=== PATIENT | female | born 1995 | race Caucasian/White ===

== ENCOUNTER 2016-11-05 06:35 | Emergency (ER) | payer SELFPAY ==
[2016-11-05] MEDS ORDERED: NO HOME MEDICATION XX (06:57)
[2016-11-05 07:11] LABS: URINE BILIRUBIN NEGATIVE (NEG); URINE BLOOD SMALL (NEG); URINE GLUCOSE (UA) NEGATIVE (NEG); URINE KETONE SMALL (NEG); URINE LEUKOCYTE ESTERASE POSITIVE (NEG); URINE NITRITE NEGATIVE (NEG); URINE PROTEIN MODERATE (NEG); URINE SPECIFIC GRAVITY 1.025 (1.003-1.030)
[2016-11-05 07:13] LABS: URINE APPEARANCE HAZY; URINE COLOR YELLOW
[2016-11-05 07:21] LABS: BASO % 0.1 % (0-2); EOS % 0.8 % (0-7); EOSINOPHIL ABSOLUTE COUNT 0.1 tho/cmm (0.0-0.7); HCT-HEMATOCRIT 41.7 % (34.0-49.0); HGB-HEMOGLOBIN 13.8 gm/dl (12.0-15.5); IMMATURE GRANULOCYTES ABSOLUTE 0.04 tho/cmm (0-0.03); IMMATURE GRANULOCYTES PERCENT 0.3 % (0-0.3); LYMPH % 8.7 % (20-45); LYMPH ABSOLUTE COUNT 1.3 tho/cmm (0.8-4.5); MCH (MEAN CORPUSCULAR HGB) 27.3 pg (28.0-32.0); MCHC MEAN CORPUSCULAR HGB CONC 33.1 % (32.0-36.0); MCV (MEAN CELL VOLUME) 82.4 fl (82.0-96.0); MEAN PLATELET VOLUME 9.9 cmc (9.4-12.4); MONO % 8.1 % (0-12); MONOCYTE ABSOLUTE COUNT 1.2 tho/cmm (0.0-1.2); PLATELET COUNT 266 tho/cmm (150-450); RED BLOOD COUNT 5.06 mil/cmm (4.00-5.20); WHITE BLOOD COUNT 14.7 tho/cmm (4.0-10.0)
[2016-11-05 07:26] LABS: URINE MUCUS 3+
[2016-11-05 07:36] LABS: ALBUMIN 3.9 g/dl (3.5-5.0); ALKALINE PHOSPHATASE 91 U/L (33-138); ALT/SGPT 32 U/L (12-78); ANION GAP 15 mmol/L (0-20); AST/SGOT 19 U/L (10-40); BILIRUBIN,TOTAL 0.6 mg/dl (0-1.5); BLOOD UREA NITROGEN 17 mg/dl (6-24); C-REACTIVE PROTEIN 0.8 mg/dl (0-0.9); CALCIUM 9.1 mg/dl (8.5-10.5); CARBON DIOXIDE-VENOUS 24 mmol/L (22-32); CHLORIDE 106 mmol/l (96-110); CREATININE 0.83 mg/dl (0.50-1.10); GLUCOSE 129 mg/dL (70-110); LIPASE 84 U/L (73-393); SODIUM 141 mmol/L (135-145); eGFR VALUE FOR BLACK >90 mL/Min
[2016-11-05 07:40] LABS: PREGNANCY-SERUM NEGATIVE (NEGATIVE)
[2016-11-05] MEDS ORDERED: DICYCLOMINE HCL20 M1 PO (08:25)
[2016-11-05] MEDS ORDERED: COMPAZINE10 MG PO (08:25)
== END 2016-11-05 09:07 ==
LOC: EDMED 06:35
PROVIDERS: Emergency Medicine
DX: R11.10 Vomiting, unspecified (principal); R19.7 Diarrhea, unspecified; R10.84 Generalized abdominal pain; I10 Essential (primary) hypertension; J45.909 Unspecified asthma, uncomplicated
CPT/HCPCS: C9113; J1885; J2270; J2405; J7030; P9612